=== PATIENT | male | born 1955 | race Caucasian/White ===

== ENCOUNTER 2024-01-12 14:01 | Outpatient (RCR) | payer OTHER, SELFPAY | END 2024-01-12 23:59 | disposition home or self-care (01) | LOC: RPT 14:01 | PROVIDERS: ATTENDING PHYSICIAN Specialist; FAMILY PHYSICIAN Internal Medicine | DX: M21.372 Foot drop, left foot (principal); M47.26 Other spondylosis with radiculopathy, lumbar region; Z73.6 Limitation of activities due to disability | CPT/HCPCS: 97110; 97112; 97140; 97161 ==

== ENCOUNTER 2024-02-09 08:53 | Outpatient (RCR) | payer OTHER, SELFPAY | END 2024-02-09 23:59 | disposition home or self-care (01) | LOC: RPT 08:53 | PROVIDERS: ATTENDING PHYSICIAN Specialist; FAMILY PHYSICIAN Internal Medicine | DX: M21.372 Foot drop, left foot (principal); M47.26 Other spondylosis with radiculopathy, lumbar region; Z73.6 Limitation of activities due to disability | CPT/HCPCS: 97110; 97112; 97140 ==

== ENCOUNTER → 2024-02-09 12:51 | Outpatient (REF) | payer OTHER, SELFPAY | LOC: HWRAD 12:51 | PROVIDERS: ATTENDING PHYSICIAN Specialist; FAMILY PHYSICIAN Internal Medicine | DX: N20.0 Calculus of kidney (principal) | CPT/HCPCS: 74018; 76775 ==

== ENCOUNTER 2024-02-28 09:01 | Outpatient (RCR) | payer OTHER, SELFPAY | END 2024-02-28 23:59 | disposition home or self-care (01) | LOC: RPT 09:01 | PROVIDERS: ATTENDING PHYSICIAN Specialist; FAMILY PHYSICIAN Internal Medicine | DX: M21.372 Foot drop, left foot (principal); M47.26 Other spondylosis with radiculopathy, lumbar region; Z73.6 Limitation of activities due to disability | CPT/HCPCS: 97110; 97112 ==

== ENCOUNTER 2024-03-27 09:04 | Outpatient (RCR) | payer OTHER, SELFPAY | END 2024-03-27 12:12 | disposition home or self-care (01) | LOC: RPT 09:04 | PROVIDERS: ATTENDING PHYSICIAN Specialist; FAMILY PHYSICIAN Internal Medicine | DX: M21.372 Foot drop, left foot (principal); M47.26 Other spondylosis with radiculopathy, lumbar region; Z73.6 Limitation of activities due to disability | CPT/HCPCS: 97110; 97112; 97140 ==

== ENCOUNTER 2025-02-12 10:02 | Outpatient (RCR) | payer OTHER, SELFPAY | END 2025-02-12 23:59 | disposition home or self-care (01) | LOC: RPT 10:02 | PROVIDERS: ATTENDING PHYSICIAN Nurse Practitioner Adult Health; FAMILY PHYSICIAN Internal Medicine | DX: G57.03 Lesion of sciatic nerve, bilateral lower limbs (principal); Z73.6 Limitation of activities due to disability; R26.89 Other abnormalities of gait and mobility; M25.552 Pain in left hip; M25.551 Pain in right hip; M62.81 Muscle weakness (generalized) | CPT/HCPCS: 97110; 97140; 97162 ==

== ENCOUNTER 2025-03-07 13:02 | Outpatient (RCR) | payer OTHER, SELFPAY | END 2025-03-07 23:59 | disposition home or self-care (01) | LOC: RPT 13:02 | PROVIDERS: ATTENDING PHYSICIAN Nurse Practitioner Adult Health; FAMILY PHYSICIAN Internal Medicine | DX: G57.03 Lesion of sciatic nerve, bilateral lower limbs (principal); Z73.6 Limitation of activities due to disability; R26.89 Other abnormalities of gait and mobility; M25.552 Pain in left hip; M25.551 Pain in right hip; M62.81 Muscle weakness (generalized) | CPT/HCPCS: 97110; 97140 ==

== ENCOUNTER 2025-03-24 11:04 | Outpatient (RCR) | payer OTHER, SELFPAY | END 2025-03-24 13:30 | disposition home or self-care (01) | LOC: RPT 11:04 | PROVIDERS: ATTENDING PHYSICIAN Nurse Practitioner Adult Health; FAMILY PHYSICIAN Internal Medicine | DX: G57.03 Lesion of sciatic nerve, bilateral lower limbs (principal); R26.89 Other abnormalities of gait and mobility; Z73.6 Limitation of activities due to disability; M25.552 Pain in left hip; M25.551 Pain in right hip; M62.81 Muscle weakness (generalized) | CPT/HCPCS: 97110 ==

== ENCOUNTER → 2025-03-28 08:18 | Outpatient (REF) | payer OTHER, SELFPAY | LOC: RAD 08:18 | PROVIDERS: ATTENDING PHYSICIAN Nurse Practitioner Adult Health | DX: M54.16 Radiculopathy, lumbar region (principal); G62.9 Polyneuropathy, unspecified; M48.062 Spinal stenosis, lumbar region with neurogenic claudication; R29.818 Other symptoms and signs involving the nervous system | CPT/HCPCS: 93922; 93925 ==

== ENCOUNTER → 2025-05-15 10:11 | Outpatient (REF) | payer OTHER, SELFPAY | LOC: PAVMRI 10:11 | PROVIDERS: ATTENDING PHYSICIAN Nurse Practitioner Adult Health | DX: M54.16 Radiculopathy, lumbar region (principal); G62.9 Polyneuropathy, unspecified; M48.062 Spinal stenosis, lumbar region with neurogenic claudication; R29.818 Other symptoms and signs involving the nervous system | CPT/HCPCS: 72148 ==

== ENCOUNTER 2025-08-13 07:48 | Outpatient (RCR) | payer OTHER, SELFPAY | END 2025-08-13 23:59 | disposition home or self-care (01) | LOC: RPT 07:48 | PROVIDERS: ATTENDING PHYSICIAN Neurological Surgery; FAMILY PHYSICIAN Nurse Practitioner Adult Health | DX: Z47.89 Encounter for other orthopedic aftercare (principal); Z73.6 Limitation of activities due to disability; M54.50 Low back pain, unspecified; R26.89 Other abnormalities of gait and mobility; Z98.1 Arthrodesis status | CPT/HCPCS: 97110; 97116; 97162 ==

== ENCOUNTER 2025-09-10 06:36 | Outpatient (RCR) | payer OTHER, SELFPAY | END 2025-09-12 06:25 | disposition home or self-care (01) | LOC: RPT 06:36 | PROVIDERS: ATTENDING PHYSICIAN Neurological Surgery; FAMILY PHYSICIAN Nurse Practitioner Adult Health | DX: Z47.89 Encounter for other orthopedic aftercare (principal); M54.50 Low back pain, unspecified; Z73.6 Limitation of activities due to disability; R26.89 Other abnormalities of gait and mobility; Z98.1 Arthrodesis status | CPT/HCPCS: 97110 ==